=== PATIENT | female | born 1960 | race Asian ===

== ENCOUNTER 2017-04-29 00:19 | Emergency (ER) | payer OTHER ==
[2017-04-29 00:34] VITALS: BP 121/76; PULSE 92; TEMP 100.3; BMI 29.2
[2017-04-29] MEDS ORDERED: IBUPROFEN 600 MG TABLET (FP) PO ONE ×2 (01:14→01:26)
--- NOTE | 2017-04-29 01:48 | PDOC ---
History of Present Illness - General History Source: Patient Exam Limitations: No Limitations - History of Present Illness Initial Comments: 04/29/17 01:51 The patient is a 56 year old female, with a significant past medical history of asthma and migraines, who presents to the emergency department with cough, fever , and body aches for approximately 2 days. The patient reports she first developed a dry cough and diffuse joint pain yesterday afternoon. Today, patient reports developing a subjective fever. Patient reports taking Advil at approximately 16:00 yesterday, with minimum relief of symptoms. She denies any associated chills, weakness, sore throat, ear pain, rhinorrhea, dizziness, or lightheadedness. Patient reports she had similar symptoms approximately 2 weeks ago, for which she saw her PCP Dr. Alcala, who prescribed Levaquin(x1 week) and Tamiflu(x5 days). Patient denies any chest pain, shortness of breath, diaphoresis, or palpitations. She denies any abdominal pain, nausea, vomiting, diarrhea, constipation, or changes in urination patterns. 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 Allergies: NKDA Past Surgical History: None reported Social History: L&D nurse. Non smoker. No ETOH or recreational drug use. PCP: Dr. Alcala <Earnestine Cunningham - Last Filed: 04/29/17 01:51> <Tiffany De La Torre - Last Filed: 04/29/17 03:57> - General Chief Complaint: Respiratory Stated Complaint: BODY ACHES,FEVER,COUGHING Time Seen by Provider: 04/29/17 01:06 Past History <Earnestine Cunningham - Last Filed: 04/29/17 01:51> - Past Medical History Asthma: Yes - Suicide/Smoking/Psychosocial Hx Smoking History: Never smoked <Tiffany De La Torre - Last Filed: 04/29/17 03:57> - Past Medical History Allergies/Adverse Reactions: Allergies Allergy/AdvReac Type Severity Reaction Status Date / Time No Known Allergies Allergy Verified 04/29/17 00:25 Home Medications: Ambulatory Orders Escitalopram Oxalate [Lexapro -] 10 mg PO DAILY 04/29/17 Topiramate [Topamax] 150 mg PO DAILY 04/29/17 Review of Systems - Review of Systems Able to Perform ROS?: Yes Comments:: 04/29/17 01:51 GENERAL/CONSTITUTIONAL: Yes fever. No chills. No weakness. HEAD, EYES, EARS, NOSE AND THROAT: No change in vision. No ear pain or discharge. No sore throat. CARDIOVASCULAR: No chest pain or shortness of breath. RESPIRATORY: Yes cough. No wheezing, or hemoptysis. GASTROINTESTINAL: No nausea, vomiting, diarrhea or constipation. GENITOURINARY: No dysuria, frequency, or change in urination. MUSCULOSKELETAL: Yes diffuse joint pain. No muscle swelling or pain. No neck or back pain. SKIN: No rash NEUROLOGIC: No headache, vertigo, loss of consciousness, or change in strength/ sensation. ENDOCRINE: No increased thirst. No abnormal weight change. HEMATOLOGIC/LYMPHATIC: No anemia, easy bleeding, or history of blood clots. ALLERGIC/IMMUNOLOGIC: No hives or skin allergy. <Earnestine Cunningham - Last Filed: 04/29/17 01:51> *Physical Exam - Vital Signs Last Vital Signs Temp Pulse Resp BP Pulse Ox 100.3 F H 92 H 18 121/76 99 04/29/17 00:22 04/29/17 00:22 04/29/17 00:22 04/29/17 00:22 04/29/17 00:22 - Physical Exam Comments: 04/29/17 01:51 GENERAL: Warm to the touch. The patient is awake, alert, and fully oriented, in no acute distress. HEAD: Normal with no signs of trauma. EYES: Pupils equal, round and reactive to light, extraocular movements intact, sclera anicteric, conjunctiva clear with no pallor. ENT: Ears normal, nares patent, oropharynx clear without exudates. Moist mucous membranes. NECK: Normal range of motion, supple without lymphadenopathy, JVD, or masses. LUNGS: Breath sounds equal, clear to auscultation bilaterally. No wheeze/ crackles. HEART: Regular rate and rhythm, normal S1 and S2 without murmur or rub. ABDOMEN: Soft/nontender/nondistended. BS wnl. No guarding or rebound. No palpable masses. No hepatosplenomegaly. EXTREMITIES: Normal range of motion, no edema. No clubbing or cyanosis. No cords, erythema, or tenderness. NEUROLOGICAL: Cranial nerves II through XII grossly intact. Normal speech, normal gait. PSYCH: Normal mood, normal affect. SKIN: Warm, Dry, normal turgor, no rashes or lesions noted. <Earnestine Cunningham - Last Filed: 04/29/17 01:51> - Vital Signs Last Vital Signs Temp Pulse Resp BP Pulse Ox 100.3 F H 92 H 18 121/76 99 04/29/17 00:22 04/29/17 00:22 04/29/17 00:22 04/29/17 00:22 04/29/17 00:22 <Tiffany De La Torre - Last Filed: 04/29/17 03:57> ED Treatment Course - Medications Given in the ED: ED Medications Discontinued Medications Generic Name Dose Route Start Last Admin Trade Name Freq PRN Reason Stop Dose Admin Ibuprofen 600 mg 04/29/17 01:14 04/29/17 01:30 Motrin - PO 04/29/17 01:15 600 mg ONCE ONE Administration <Earnestine Cunningham - Last Filed: 04/29/17 01:51> - RADIOLOGY Radiology Studies Ordered: Category Date Time Status CHEST PA & LAT [RAD] Stat Radiology 04/29/17 01:16 Ordered - Medications Given in the ED: ED Medications Discontinued Medications Generic Name Dose Route Start Last Admin Trade Name Freq PRN Reason Stop Dose Admin Ibuprofen 600 mg 04/29/17 01:14 04/29/17 01:30 Motrin - PO 04/29/17 01:15 600 mg ONCE ONE Administration <Tiffany De La Torre - Last Filed: 04/29/17 03:57> Medical Decision Making - Medical Decision Making 04/29/17 02:09 Normal CXR 04/29/17 03:56 Pt comes with cough and fever and body aches. She has normal CXR and she has a normal flu culture. Pt was treated with analgesia and she is feeling better SHe recently was treated with a course of levaquin and a course of tamiflu, by her PMD for similar symptoms/ Today she is flu negative. Pt will be discharged with a diagnosis of viral URI. <Tiffany De La Torre - Last Filed: 04/29/17 03:57> *DC/Admit/Observation/Transfer - Attestations Scribe Attestion: 04/29/17 01:52 Documentation prepared by Earnestine Cunningham, acting as medical laboratory manager for Tiffany De La Torre MD. <Earnestine Cunningham - Last Filed: 04/29/17 01:51> - Discharge Dispostion Admit: No <Tiffany De La Torre - Last Filed: 04/29/17 03:57> Diagnosis at time of Disposition: Viral illness - Discharge Dispostion Disposition: HOME Condition at time of disposition: Stable - Referrals Referrals: Violet Alcala [Primary Care Provider] - - Patient Instructions Printed Discharge Instructions: Common Cold
== END 2017-04-29 02:54 | disposition home or self-care (01) ==
LOC: JER 00:19
DX: J00 Acute nasopharyngitis [common cold] (principal); B97.89 Other viral agents as the cause of diseases classified elsewhere
CPT/HCPCS: 71020-TC; 87804; 99283-25

== ENCOUNTER 2020-09-03 00:51 | Emergency (ER) | payer OTHER ==
[2020-09-03 01:02] VITALS: BMI 31.2
[2020-09-03] MEDS ORDERED: ONDANSETRON 4 MG/2 ML VIAL IVPUSH ONE (01:09)
[2020-09-03] MEDS ORDERED: ONDANSETRON 4 MG/2 ML VIAL ONE (01:26)
[2020-09-03] MEDS ORDERED: MECLIZINE HCL 25 MG TABLET (FP) PO ONE ×2 (01:37→03:16)
[2020-09-03 01:44] LABS: HEMATOCRIT 42.6 % (32.4-45.2); HEMOGLOBIN 14.1 GM/dL (10.7-15.3); MCH 31.3 pg (25.7-33.7); MEAN CELL VOLUME 94.7 fl (80-96); MEAN PLT VOLUME 9.5 fl (7.5-11.1); PLATELET COUNT 278 K/MM3 (134-434); RBC 4.51 M/mm3 (3.60-5.2); RDW 14.3 % (11.6-15.6)
[2020-09-03] MEDS ORDERED: MECLIZINE HCL 25 MG TABLET (FP) ONE ×2 (01:49→03:26)
[2020-09-03] MEDS ORDERED: SODIUM CHLORIDE 1,000 ML IV STA (03:09)
[2020-09-03] MEDS ORDERED: METOCLOPRAMIDE HCL INJECTION 10 MG/2 ML VIAL IVPUSH ONE (03:16)
[2020-09-03] MEDS ORDERED: METOCLOPRAMIDE HCL INJECTION 10 MG/2 ML VIAL ONE (03:26)
[2020-09-03 04:16] LABS: CHLORIDE 107 mmol/L (98-107); POTASSIUM 4.2 mmol/L (3.5-5.1); SODIUM 140 mmol/L (136-145)
[2020-09-03 04:17] LABS: CALCIUM 9.3 mg/dL (8.5-10.1)
[2020-09-03 04:18] LABS: ANION GAP 9 MMOL/L (8-16); BLOOD UREA NITROGEN 15.4 mg/dL (7-18); CO2 25 mmol/L (21-32); GLUCOSE,RANDOM 124 mg/dL (74-106)
[2020-09-03 04:20] LABS: SGPT/ALT 40 U/L (13-61)
[2020-09-03 04:21] LABS: CREATININE 0.8 mg/dL (0.55-1.3); SGOT/AST 27 U/L (15-37)
[2020-09-03 04:22] LABS: BILIRUBIN,TOTAL 0.3 mg/dL (0.2-1)
[2020-09-03 04:23] LABS: ALK PHOS 77 U/L (45-117)
[2020-09-03 04:25] LABS: CREATININE 0.7 mg/dL (0.55-1.3)
[2020-09-03] MEDS ORDERED: MAGNESIUM SULF 50% (8.12 MEQ/2 ML-1 GM VIAL) IVPB ONE (05:19)
[2020-09-03] MEDS ORDERED: MAGNESIUM 1GM/D5W - 1 GM/100 ML IVPB IVPB ONE (05:30)
[2020-09-03 09:14] VITALS: BP 94/58; PULSE 75; TEMP 98.6
== END 2020-09-03 09:15 | disposition home or self-care (01) ==
LOC: JER 00:51
PROC: 3E033GC Introduction of Other Therapeutic Substance into Peripheral Vein, Percutaneous Approach (ICD-10-PCS; principal; 2020-09-03)
PROC: 3E033GC Introduction of Other Therapeutic Substance into Peripheral Vein, Percutaneous Approach (ICD-10-PCS; 2020-09-03)
PROC: 3E033GC Introduction of Other Therapeutic Substance into Peripheral Vein, Percutaneous Approach (ICD-10-PCS; 2020-09-03)
PROC: 3E0337Z Introduction of Electrolytic and Water Balance Substance into Peripheral Vein, Percutaneous Approach (ICD-10-PCS; 2020-09-03)
DX: R42 Dizziness and giddiness (principal); R11.10 Vomiting, unspecified; R10.13 Epigastric pain
CPT/HCPCS: 36415; 70450-TC; 70496-TC; 70498-TC; 70551-TC; 80053; 82565; 84484; 85027; 93005; 93010; 99285-25; C9803; U0003

== ENCOUNTER 2021-11-21 00:29 | Emergency (ER) | payer BC ==
[2021-11-21] MEDS ORDERED: methylPREDNISolone NA SUCC 125 MG/2 ML VIAL IVPUSH ONE (00:42)
[2021-11-21] MEDS ORDERED: ALBUTEROL SO4 2.5/IPRATROPIUM 0.5 INH SOL 3 ML VIAL.NEB. NEB ONE ×2 (00:43→02:09)
[2021-11-21 00:49] VITALS: BP 127/79; PULSE 96; TEMP 98.6; BMI 32.2
[2021-11-21] MEDS: ALBUTEROL SO4 2.5/IPRATROPIUM 0.5 INH SOL 3 ML VIAL.NEB. NEB SCH ×3 (00:49→02:45)
[2021-11-21] MEDS ORDERED: methylPREDNISolone NA SUCC 125 MG/2 ML VIAL ONE (00:51)
[2021-11-21 02:35] LABS: BASO % 0.4 % (0-2.0); EOS % 0.4 % (0-4.5); HEMATOCRIT 39.3 % (32.4-45.2); HEMOGLOBIN 13.1 GM/dL (10.7-15.3); LYMPH % 24.1 % (8-40); MCH 30.9 pg (25.7-33.7); MCHC 33.4 g/dl (32.0-36.0); MEAN CELL VOLUME 92.5 fl (80-96); MEAN PLT VOLUME 9.4 fl (7.5-11.1); MONO % 8.9 % (3.8-10.2); NEUT % 66.2 % (42.8-82.8); PLATELET COUNT 240 10^3/uL (134-434); RBC 4.25 M/mm3 (3.60-5.2); RDW 14.2 % (11.6-15.6); WHITE BLOOD COUNT 11.4 K/mm3 (4.0-10.0)
[2021-11-21 02:59] LABS: ALBUMIN 3.6 g/dl (3.4-5.0); CALCIUM 8.7 mg/dL (8.5-10.1)
[2021-11-21 03:03] LABS: CREATININE 1.1 mg/dL (0.55-1.3)
[2021-11-21 03:05] LABS: BILIRUBIN,TOTAL 0.2 mg/dL (0.2-1); TOT PROT 7.1 g/dl (6.4-8.2)
== END 2021-11-21 03:55 | disposition home or self-care (01) ==
LOC: JER 00:29
PROC: 3E033NZ Introduction of Analgesics, Hypnotics, Sedatives into Peripheral Vein, Percutaneous Approach (ICD-10-PCS; principal; 2021-11-21)
PROC: 3E0F7GC Introduction of Other Therapeutic Substance into Respiratory Tract, Via Natural or Artificial Opening (ICD-10-PCS; 2021-11-21)
DX: J45.901 Unspecified asthma with (acute) exacerbation (principal)
CPT/HCPCS: 0241U-QW; 36415; 71045-TC-FY; 80053; 84484; 85025; 93005; 93010; 99284-25

== ENCOUNTER 2022-07-12 16:00 | Emergency (ER) | payer BC ==
[2022-07-12 16:13] VITALS: BP 117/86; PULSE 92; RESP 18; TEMP 97.8; BMI 29.2
[2022-07-12] MEDS ORDERED: IBUPROFEN 600 MG TABLET (FP) PO ONE ×2 (16:17→16:19)
[2022-07-12] MEDS ORDERED: ALBUTEROL SO4 2.5/IPRATROPIUM 0.5 INH SOL 3 ML VIAL.NEB. NEB ONE ×2 (17:24→17:28)
== END 2022-07-12 18:45 | disposition home or self-care (01) ==
LOC: FER 16:00
PROC: 3E0F7GC Introduction of Other Therapeutic Substance into Respiratory Tract, Via Natural or Artificial Opening (ICD-10-PCS; principal; 2022-07-12)
DX: R05.1 Acute cough (principal)
CPT/HCPCS: 0241U-QW; 71046-TC-FY; 99284-25

== ENCOUNTER 2023-11-01 20:35 | Emergency (ER) | payer BC ==
[2023-11-01 20:47] VITALS: BP 136/89; PULSE 86; RESP 20; BMI 31.2
[2023-11-01] MEDS ORDERED: MECLIZINE HCL 25 MG TABLET (FP) ONE (21:31)
[2023-11-01] MEDS ORDERED: ACETAMINOPHEN INJECTION 100 ML IVPB ONE (21:31)
[2023-11-01] MEDS ORDERED: METOCLOPRAMIDE HCL INJECTION 10 MG/2 ML VIAL ONE (21:31)
[2023-11-01 22:05] LABS: BASO % 0.7 % (0-2.0); EOS % 3.3 % (0-4.5); HEMATOCRIT 45.3 % (32.4-45.2); HEMOGLOBIN 15.1 GM/dL (10.7-15.3); LYMPH % 25.8 % (8-40); MCH 31.4 pg (25.7-33.7); MCHC 33.3 g/dl (32.0-36.0); MEAN CELL VOLUME 94.3 fl (80-96); MONO % 5.2 % (3.8-10.2); PLATELET COUNT 272 10^3/uL (134-434); RBC 4.81 M/mm3 (3.60-5.2); RDW 14.4 % (11.6-15.6); WHITE BLOOD COUNT 9.2 K/mm3 (4.0-10.0)
[2023-11-01] MEDS: MECLIZINE HCL 25 MG TABLET (FP) PO ONE ×2 (22:07→23:42)
[2023-11-01] MEDS: ACETAMINOPHEN 1000 MG/100 ML BAG IVPB ONE (22:08)
[2023-11-01] MEDS: LACTATED RINGERS SOLUTION 1000 ML INFUS.BAG IV ONE (22:08)
[2023-11-01] MEDS: METOCLOPRAMIDE HCL INJECTION 10 MG/2 ML VIAL IVPB ONE (22:08)
[2023-11-01 22:13] LABS: INR 0.9 (0.83-1.09); PROTHROMBIN TIME (PATIENT) 10.5 SEC (9.7-13.0)
[2023-11-01 22:16] LABS: ACTIVATED PTT 34.7 SECONDS (25.2-36.5)
[2023-11-01 22:28] LABS: BLOOD UREA NITROGEN 12.4 mg/dL (7-18); MAGNESIUM 2.8 mg/dL (1.8-2.4)
[2023-11-01 22:31] LABS: CREATININE 0.9 mg/dL (0.55-1.3)
[2023-11-01 22:32] LABS: BILIRUBIN,TOTAL 0.3 mg/dL (0.2-1); TOT PROT 8.2 g/dl (6.4-8.2)
[2023-11-01] MEDS ORDERED: LOPERAMIDE HCL 2 MG CAPSULE ONE (22:39)
[2023-11-01] MEDS: LOPERAMIDE HCL 2 MG CAPSULE PO ONE (22:44)
[2023-11-01] MEDS ORDERED: FAMOTIDINE 20 MG/50 ML IVPB 20 MG/50 ML MG IVPB ONE (23:16)
[2023-11-01] MEDS ORDERED: KETOROLAC TROMETHAMINE 15 MG/ML VIAL ONE (23:16)
[2023-11-01] MEDS: FAMOTIDINE 20 MG/50 ML IVPB 20 MG/50 ML MG IVPB ONE (23:40)
[2023-11-01] MEDS: KETOROLAC TROMETHAMINE 15 MG/ML VIAL IVPUSH ONE (23:40)
== END 2023-11-02 00:42 | disposition home or self-care (01) ==
LOC: JER 20:35
PROC: 3E033GC Introduction of Other Therapeutic Substance into Peripheral Vein, Percutaneous Approach (ICD-10-PCS; principal; 2023-11-01)
PROC: 3E033GC Introduction of Other Therapeutic Substance into Peripheral Vein, Percutaneous Approach (ICD-10-PCS; 2023-11-01)
PROC: 3E033NZ Introduction of Analgesics, Hypnotics, Sedatives into Peripheral Vein, Percutaneous Approach (ICD-10-PCS; 2023-11-01)
PROC: 3E0333Z Introduction of Anti-inflammatory into Peripheral Vein, Percutaneous Approach (ICD-10-PCS; 2023-11-01)
DX: R42 Dizziness and giddiness (principal); R07.89 Other chest pain; R61 Generalized hyperhidrosis; R11.10 Vomiting, unspecified; Z20.822 Contact with and (suspected) exposure to COVID-19
CPT/HCPCS: 0241U-QW; 36415; 70450-TC; 71045-TC-FY; 80053; 83735; 84484; 85025; 85610; 85730; 93005; 93010; 99285-25; J0131

== ENCOUNTER 2024-03-09 02:49 | Inpatient (IN) | payer BC ==
[2024-03-09 03:39] LABS: RDW 14.6 % (11.6-15.6)
[2024-03-09] MEDS ORDERED: methylPREDNISolone NA SUCC 125 MG/2 ML VIAL ONE (03:41)
[2024-03-09 03:46] LABS: INR 0.96 (0.83-1.09); PROTHROMBIN TIME (PATIENT) 10.9 SEC (9.7-13.0)
[2024-03-09] MEDS: LACTATED RINGERS SOLUTION 1000 ML INFUS.BAG IV ONE (03:55)
[2024-03-09] MEDS: methylPREDNISolone NA SUCC 125 MG/2 ML VIAL IVPUSH ONE (03:55)
[2024-03-09] MEDS: ALBUTEROL SO4 0.083% IH SOL 2.5 MG/3 ML VIAL.NEB. NEB SCH ×2 (03:56→05:44)
[2024-03-09 04:02] LABS: POTASSIUM 3.7 mmol/L (3.5-5.1)
[2024-03-09 04:03] LABS: HEMATOCRIT 43.7 % (32.4-45.2); MCH 32.4 pg (25.7-33.7); MCHC 34.3 g/dl (32.0-36.0); MEAN CELL VOLUME 94.5 fl (80-96); MEAN PLT VOLUME 9.4 fl (7.5-11.1); PLATELET COUNT 220 10^3/uL (134-434); RBC 4.63 M/mm3 (3.60-5.2); WHITE BLOOD COUNT 19.5 K/mm3 (4.0-10.0)
[2024-03-09 04:04] LABS: ALBUMIN 3.6 g/dl (3.4-5.0); CALCIUM 8.8 mg/dL (8.5-10.1)
[2024-03-09 04:08] LABS: CREATININE 1.1 mg/dL (0.55-1.3)
[2024-03-09 04:09] LABS: BILIRUBIN,TOTAL 0.4 mg/dL (0.2-1)
[2024-03-09 04:15] LABS: MAGNESIUM 2.2 mg/dL (1.8-2.4)
[2024-03-09] MEDS ORDERED: ACETAMINOPHEN INJECTION 100 ML ONE (04:42)
[2024-03-09] MEDS ORDERED: FAMOTIDINE 20 MG/50 ML IVPB 20 MG/50 ML MG IVPB ONE (04:42)
[2024-03-09] MEDS: ACETAMINOPHEN 1000 MG/100 ML BAG IVPB ONE ×2 (04:45→22:32)
[2024-03-09] MEDS ORDERED: MAGNESIUM SULFATE IN WATER 2 GM/50 ML IVPB IVPB ONE (04:49)
[2024-03-09] MEDS: MAGNESIUM SULFATE IN WATER 2 GM/50 ML IVPB IVPB ONE (04:50)
[2024-03-09] MEDS ORDERED: CEFTRIAXONE 1 GM/50 ML BAG ONE (05:12)
[2024-03-09] MEDS ORDERED: AZITHROMYCIN IVPB 500 MG/250 ML BAG IVPB ONE (05:56)
[2024-03-09] MEDS: AZITHROMYCIN IVPB 500 MG in DEXTROSE 5%-WATER - 250 ML IVPB ONE (06:00)
[2024-03-09] MEDS ORDERED: ALBUTEROL SO4 0.083% IH SOL 2.5 MG/3 ML VIAL.NEB. NEB SCH (06:15)
[2024-03-09] MEDS: methylPREDNISolone NA SUCC 40 MG/1 ML VIAL IVPUSH SCH ×2 (06:32→10:25)
[2024-03-09] MEDS: FAMOTIDINE 20 MG/50 ML IVPB 20 MG/50 ML MG IVPB ONE (06:32)
[2024-03-09 07:23] LABS: ANISOCYTOSIS 0; HELMET CELLS 0; HOWELL-JOLLY BODIES 0; MACROCYTOSIS 0; OVALOCYTE 0; ROULEAU 0; SICKELED CELLS 0; TARGET CELLS 0; TEAR DROP CELLS 0; TOXIC GRANULATION 0
[2024-03-09] MEDS: ALBUTEROL SO4 2.5/IPRATROPIUM 0.5 INH SOL 3 ML VIAL.NEB. NEB SCH (07:50)
[2024-03-09] MEDS: ALBUTEROL SO4 2.5/IPRATROPIUM 0.5 INH SOL 3 ML VIAL.NEB. NEB ONE (08:56)
[2024-03-09 09:20] VITALS: BMI 32.8
[2024-03-09 10:17] LABS: HEMATOCRIT 42.4 % (32.4-45.2); HEMOGLOBIN 14.5 GM/dL (10.7-15.3); MCH 32.2 pg (25.7-33.7); MCHC 34.1 g/dl (32.0-36.0); MEAN CELL VOLUME 94.4 fl (80-96); MEAN PLT VOLUME 9.6 fl (7.5-11.1); PLATELET COUNT 224 10^3/uL (134-434); RBC 4.49 M/mm3 (3.60-5.2); RDW 14.7 % (11.6-15.6); WHITE BLOOD COUNT 22.6 K/mm3 (4.0-10.0)
[2024-03-09] MEDS: ENOXAPARIN NA (PORCINE) 40 MG/0.4 ML DISP.SYRIN SQ SCH (10:25)
[2024-03-09] MEDS: ESCITALOPRAM OXALATE 10 MG TABLET PO SCH (10:26)
[2024-03-09] MEDS: hydrOXYzine PAMOATE 25 MG CAPSULE (FP) PO SCH (10:26)
[2024-03-09] MEDS: guaiFENesin/CODEINE 10 ML UNIT-DOSE CUPS PO PRN (10:26)
[2024-03-09] MEDS: MONTELUKAST NA 10 MG TABLET PO SCH (10:26)
[2024-03-09] MEDS: TOPIRAMATE 100 MG TABLET PO SCH (10:26)
[2024-03-09 10:30] LABS: POTASSIUM 3.6 mmol/L (3.5-5.1)
[2024-03-09 10:32] LABS: ALBUMIN 3.3 g/dl (3.4-5.0); BLOOD UREA NITROGEN 15.4 mg/dL (7-18); CALCIUM 8.5 mg/dL (8.5-10.1); MAGNESIUM 2.9 mg/dL (1.8-2.4)
[2024-03-09 10:36] LABS: PHOSPHOROUS 1.8 mg/dL (2.5-4.9)
[2024-03-09 10:37] LABS: BILIRUBIN,TOTAL 0.5 mg/dL (0.2-1); TOT PROT 6.8 g/dl (6.4-8.2)
[2024-03-09 10:41] LABS: N-TERMINAL BNP 535.1 pg/ml (5-125)
[2024-03-09] MEDS: INSULIN ASPART SLIDING SCALE (NOVOLOG) 1 VIAL SQ SCH (11:13)
[2024-03-09] MEDS ORDERED: methylPREDNISolone NA SUCC 40 MG/1 ML VIAL IVPUSH SCH (12:00)
[2024-03-09] MEDS: FUROSEMIDE 40 MG/4 ML INJECTABLE VIAL IVPUSH SCH (12:29)
[2024-03-09] MEDS: FAMOTIDINE 20 MG TABLET PO ONE (18:37)
[2024-03-10 05:33] VITALS: RESP 20
[2024-03-10] MEDS: CEFTRIAXONE 1 GM in DEXTROSE 5%-WATER - 50 ML IVPB ONE (05:37)
[2024-03-10] MEDS ORDERED: AZITHROMYCIN IVPB 500 MG/250 ML BAG IVPB SCH (06:00)
[2024-03-10] MEDS: AZITHROMYCIN 250 MG TABLET PO SCH (09:58)
[2024-03-10 12:06] LABS: HEMATOCRIT 41.7 % (32.4-45.2); HEMOGLOBIN 13.9 GM/dL (10.7-15.3); MCH 31.8 pg (25.7-33.7); MCHC 33.4 g/dl (32.0-36.0); MEAN CELL VOLUME 95.2 fl (80-96); MEAN PLT VOLUME 9.5 fl (7.5-11.1); PLATELET COUNT 224 10^3/uL (134-434); RBC 4.38 M/mm3 (3.60-5.2); RDW 15.4 % (11.6-15.6); WHITE BLOOD COUNT 26.2 K/mm3 (4.0-10.0)
[2024-03-10 12:32] LABS: POTASSIUM 3.4 mmol/L (3.5-5.1)
[2024-03-10 12:33] LABS: CALCIUM 8.7 mg/dL (8.5-10.1)
[2024-03-10 12:34] LABS: ALBUMIN 3.7 g/dl (3.4-5.0); BLOOD UREA NITROGEN 15.6 mg/dL (7-18); MAGNESIUM 2.9 mg/dL (1.8-2.4)
[2024-03-10 12:36] LABS: PHOSPHOROUS 1.9 mg/dL (2.5-4.9)
[2024-03-10 12:38] LABS: BILIRUBIN,TOTAL 0.2 mg/dL (0.2-1); CREATININE 0.8 mg/dL (0.55-1.3); TOT PROT 7.5 g/dl (6.4-8.2)
[2024-03-10 12:40] LABS: N-TERMINAL BNP 774.2 pg/ml (5-125)
[2024-03-10 13:00] LABS: ANISOCYTOSIS 0; HELMET CELLS 0; HOWELL-JOLLY BODIES 0; MACROCYTOSIS 0; OVALOCYTE 0; ROULEAU 0; SICKELED CELLS 0; TARGET CELLS 0; TEAR DROP CELLS 0; TOXIC GRANULATION 0
[2024-03-10] MEDS: MECLIZINE HCL 25 MG TABLET (FP) PO PRN (13:01)
[2024-03-10] MEDS: NAPH,MB-DB/K PH,MBDB POWDER PACKET PO ONE (14:23)
[2024-03-10] MEDS: POTASSIUM CHLORIDE TABS 10 MEQ TABLET.ER (FP) PO ONE (14:23)
[2024-03-10] MEDS: LIDOCAINE 5% TOPICAL PATCH TP SCH (14:24)
[2024-03-10] MEDS: LIDOCAINE PATCH REMOVAL MC SCH (21:20)
[2024-03-10] MEDS: ACETAMINOPHEN 1000 MG/100 ML BAG IVPB PRN (21:20)
[2024-03-11 07:40] LABS: BASO % 0.1 % (0-2.0); EOS % 0.1 % (0-4.5); HEMATOCRIT 39.1 % (32.4-45.2); HEMOGLOBIN 13.3 GM/dL (10.7-15.3); LYMPH % 18.7 % (8-40); MCH 32.3 pg (25.7-33.7); MCHC 34.1 g/dl (32.0-36.0); NEUT % 74.1 % (42.8-82.8); PLATELET COUNT 223 10^3/uL (134-434); RBC 4.12 M/mm3 (3.60-5.2); RDW 15.1 % (11.6-15.6); WHITE BLOOD COUNT 19.8 K/mm3 (4.0-10.0)
[2024-03-11 07:55] LABS: POTASSIUM 3.8 mmol/L (3.5-5.1)
[2024-03-11 08:00] LABS: ALBUMIN 3.4 g/dl (3.4-5.0); BLOOD UREA NITROGEN 18.8 mg/dL (7-18); MAGNESIUM 2.8 mg/dL (1.8-2.4)
[2024-03-11 08:03] LABS: CALCIUM 8.4 mg/dL (8.5-10.1); CREATININE 0.8 mg/dL (0.55-1.3); PHOSPHOROUS 2.4 mg/dL (2.5-4.9)
[2024-03-11 08:04] LABS: BILIRUBIN,TOTAL 0.4 mg/dL (0.2-1); TOT PROT 6.7 g/dl (6.4-8.2)
[2024-03-11] MEDS ORDERED: ALBUTEROL SULFATE 0.021% (0.63 MG/3 ML) VIAL.NEB NEB ONE (09:00)
[2024-03-11] MEDS: methylPREDNISolone NA SUCC 40 MG/1 ML VIAL IVPUSH SCH (09:44)
[2024-03-11] MEDS: CEFTRIAXONE 1 GM in DEXTROSE 5%-WATER - 50 ML IVPB SCH (09:46)
[2024-03-11] MEDS: NAPH,MB-DB/K PH,MBDB POWDER PACKET PO ONE (09:49)
[2024-03-11] MEDS ORDERED: ALBUTEROL SO4 HFA INHALER IH PRN (10:37)
[2024-03-11 13:45] VITALS: PULSE 65
[2024-03-11] MEDS: ALBUTEROL SO4 0.083% IH SOL 2.5 MG/3 ML VIAL.NEB. NEB ONE (13:54)
[2024-03-11] MEDS: BUDESONIDE/FORMOTEROL FUMARATE 160-4.5 MCG (10.3 GM INHALER) IH SCH (21:24)
[2024-03-11] MEDS ORDERED: PATIENT'S OWN MEDICATION (NON-FORMULARY) (Umeclidinium Bromide [Incruse Ellipta] 62.5 MCG IH SCH (22:00)
[2024-03-11] MEDS: ACETAMINOPHEN 1000 MG/100 ML BAG IVPB ONE (22:10)
[2024-03-12 08:06] VITALS: BP 104/76; TEMP 98.2
[2024-03-12 09:16] LABS: BASO % 0.1 % (0-2.0); EOS % 0.5 % (0-4.5); HEMATOCRIT 40.2 % (32.4-45.2); HEMOGLOBIN 13.8 GM/dL (10.7-15.3); LYMPH % 32.3 % (8-40); MCH 32.5 pg (25.7-33.7); MCHC 34.3 g/dl (32.0-36.0); MEAN CELL VOLUME 94.6 fl (80-96); MEAN PLT VOLUME 10.2 fl (7.5-11.1); MONO % 7.1 % (3.8-10.2); PLATELET COUNT 240 10^3/uL (134-434); RBC 4.25 M/mm3 (3.60-5.2); RDW 15.2 % (11.6-15.6); WHITE BLOOD COUNT 14.2 K/mm3 (4.0-10.0)
[2024-03-12 09:42] LABS: POTASSIUM 3.5 mmol/L (3.5-5.1)
[2024-03-12 09:46] LABS: CALCIUM 8.8 mg/dL (8.5-10.1)
[2024-03-12 09:47] LABS: ALBUMIN 3.4 g/dl (3.4-5.0); MAGNESIUM 2.5 mg/dL (1.8-2.4)
[2024-03-12 09:50] LABS: BILIRUBIN,TOTAL 0.4 mg/dL (0.2-1); CREATININE 0.8 mg/dL (0.55-1.3); PHOSPHOROUS 2.6 mg/dL (2.5-4.9); TOT PROT 6.9 g/dl (6.4-8.2)
== END 2024-03-12 16:40 | disposition home or self-care (01) | DRG 292 ==
LOC: JER 02:49 → JERBED 04:57 → J6S 07:23 → JERBED 10:30 → OBSVTOIN 03-12 10:30
PROVIDERS: ADMIT Internal Medicine; ATTEND Internal Medicine
DX: I50.33 Acute on chronic diastolic (congestive) heart failure (principal); J45.901 Unspecified asthma with (acute) exacerbation; E78.5 Hyperlipidemia, unspecified; E66.9 Obesity, unspecified; Z68.32 Body mass index [BMI] 32.0-32.9, adult; K58.9 Irritable bowel syndrome, unspecified; G43.909 Migraine, unspecified, not intractable, without status migrainosus
CPT/HCPCS: 0241U-QW; 36415; 71045-TC-FY; 71250-TC; 80053; 80061; 82550; 82962; 83036; 83735; 83880; 84100; 84439; 84443; 84484; 85025; 85027; 85610; 85730; 87040; 93005; 93010; 93306-TC; 94010; 94640; 99285-25; G0378; J0131